=== PATIENT | female | born 1985 | race Two or more races ===

== ENCOUNTER 2022-10-15 09:44 | Emergency (ER) | payer OTHER ==
[~2022-10-15] VITALS: Ht 162.6 cm; Wt 78.9 kg
[2022-10-15] MEDS ORDERED: IV NS 0.9% 1,000 ML BAG IV ONE (10:00)
--- NOTE | 2022-10-15 10:00 | NUR ---
PHLEB AT BEDSIDE FOR BLOOD DRAW
[2022-10-15 10:08] LABS: BASOPHILS % (AUTO) 0.2 % (0.0-2.0); EOSINOPHILS % (AUTO) 0.8 % (0.0-6.0); HEMATOCRIT 42 % (33-45); HEMOGLOBIN 13.9 g/dL (11.5-14.8); LYMPHOCYTES # (AUTO) 1.5 K/uL (0.8-4.8); LYMPHOCYTES % (AUTO) 15.8 % (20.0-44.0); MEAN CORPUSCULAR HGB CONC 33 g/dl (31.0-36.0); MEAN CORPUSCULAR VOLUME 84 fL (82-100); MONOCYTES # (AUTO) 0.4 K/uL (0.1-1.30); MONOCYTES % (AUTO) 3.8 % (2.0-12.0); NEUTROPHILS # (AUTO) 7.4 K/uL (1.8-8.9); NEUTROPHILS % (AUTO) 79.4 % (43.0-81.0); PLATELET COUNT (AUTO) 225 K/uL (150-450); RED BLOOD CELL COUNT(AUTO) 4.96 MIL/uL (4.0-5.2); WHITE BLOOD COUNT (AUTO) 9.3 K/uL (4.3-11.0)
--- NOTE | 2022-10-15 10:11 | NUR ---
URINE SAMPLE COLLECTED AND SENT TO LAB
--- NOTE | 2022-10-15 10:12 | NUR ---
AMANDA (SISTER) [phone] Addendum: 10/15/22 at 1014 by ALLEN LEFT VOICE MESSAGE TO INFORM SISTER
[2022-10-15 10:24] LABS: ALANINE AMINOTRANSFERASE 13 U/L (12-78); ALBUMIN 3.9 g/dL (3.4-5.0); ALKALINE PHOSPHATASE 112 U/L (46-116); ASPARTATE AMINOTRANSFERASE 15 U/L (15-37); BILIRUBIN,DIRECT 0.1 mg/dL (0.0-0.2); BILIRUBIN,TOTAL 0.5 mg/dL (0.2-1.0); CALCIUM, SERUM 9.2 mg/dL (8.5-10.1); CARBON DIOXIDE 25 mmol/L (21-32); CHLORIDE 99 mmol/L (98-107); CREATININE 0.8 mg/dL (0.6-1.3); POTASSIUM 3.8 mmol/L (3.5-5.1); SODIUM SERUM 135 mmol/L (136-145); TOTAL PROTEIN, SERUM 7.4 g/dL (6.4-8.2); UREA NITROGEN, BLOOD 12 mg/dL (7-18)
[2022-10-15 10:33] LABS: GLUCOSE 380 mg/dL (74-106)
--- NOTE | 2022-10-15 10:33 | NUR ---
SPOKE W/ AMANDA, SISTER, AND INFORMED OF PT'S ER ADMISSION
[2022-10-15] MEDS ORDERED: METF-442 PO ×2 (10:39→13:11)
[2022-10-15] MEDS ORDERED: ATOR10TA PO (10:39)
[2022-10-15] MEDS ORDERED: LISINOPRIL (10:39)
--- NOTE | 2022-10-15 10:40 | NUR ---
COVID SWAB COLLECTED AND SENT TO LAB
[2022-10-15 10:44] LABS: BILIRUBIN,URINE NEGATIVE (NEGATIVE); COLOR,URINE YELLOW (YELLOW); LEUKOCYTE ESTERASE ,URINE NEGATIVE (NEGATIVE); NITRITE, URINE NEGATIVE (NEGATIVE); PROTEIN,URINE NEGATIVE (NEGATIVE); UGLUCOSE 3+ mg/dL (NEGATIVE); UROBILINOGEN,URINE 0.2 EU/dL (0.2)
[2022-10-15 10:47] LABS: BACTERIA,URINE Rare /HPF (None Seen); SQUAMOUS EPITHELIAL CELL,UR Few /HPF (None Seen)
[2022-10-15] MEDS ORDERED: INSULIN REGULAR, HUMAN 100 UNIT/ML 10 ML VIAL ONE (10:58)
[2022-10-15] MEDS ORDERED: INSULIN REGULAR, HUMAN 100 UNIT/ML 10 ML VIAL SQ ONE (11:00)
--- NOTE | 2022-10-15 12:12 | NUR ---
ACCUCHECK BS 238MG/DL, DR PARRA MADE AWARE
--- NOTE | 2022-10-15 13:00 | NUR ---
CALLED [facility] AND CONFIRMED LISINOPRIL DOSE OF 10MG PO QHS PER PHARMACIST
[2022-10-15] MEDS ORDERED: LISI10TA29 PO (13:11)
[2022-10-15] MEDS ORDERED: ATOR40TA PO (13:11)
[2022-10-15 13:20] VITALS: BP 123/70
--- NOTE | 2022-10-15 13:20 | NUR ---
IV removed. Catheter intact and site benign. Pressure and 4x4 applied to site. No bleeding noted.
--- NOTE | 2022-10-15 13:20 | NUR ---
Patient discharged to home in stable condition. Written and verbal after care instructions given. Patient verbalizes understanding of instruction.
== END 2022-10-15 13:21 | disposition home or self-care (01) ==
LOC: ER 09:46
DX: R07.89 Other chest pain (principal); E11.65 Type 2 diabetes mellitus with hyperglycemia; Z79.84 Long term (current) use of oral hypoglycemic drugs; R94.31 Abnormal electrocardiogram [ECG] [EKG]; Z91.14 Patient's other noncompliance with medication regimen
CPT/HCPCS: 99285; 96360; 71045; 87426; 93005; 85025; 80048; 82010; 80076; 84703; 81001; 36415; 84484 ×2; 82962; 96372; J1815; J7030; C9803